=== PATIENT | male | born 1940 | race Caucasian/White ===

== ENCOUNTER 2017-02-08 07:48 | Observation (INO) | payer OTHER ==
[~2017-02-08] VITALS: Ht 167.6 cm; Wt 81.6 kg
--- NOTE | ~2017-02-08 | ST ---
Unit #: [id number] #: [id number] Patient: NAIMA GAITAN [id number] [facility]. [address] [place], [place] [address] [id number] I MR#: [id number] NAME: NAIMA GAITAN : 1940 SEX: M STUDY DATE/TIME: 02/09/2017 UNIT: [facility] ROOM: 569 STUDY DESCRIPTION: Attending Physician: Carlos Mercer M.D. Primary Care Physician: Guadalupe Aparicio A.P.R.N. CARDIOLOGY REPORT EXAM EKG portion of a Lexiscan Cardiolite stress test. REASON FOR EXAM Left-sided chest pain. FINDINGS Baseline EKG is sinus rhythm with frequent PACs and PVCs. A total of 0.4 mg of Lexiscan was injected per protocol followed by Cardiolite. The patient experienced no symptoms. He continued to have frequent PACs and PVCs with a rare couplet. The test was stopped due to protocol completion. IMPRESSION 1. This is a nondiagnostic test. 2. There were no ST segment changes. 3. The patient experienced no symptoms. 4. The patient did experience frequent PACs and unifocal PVCs with a rear couplet. 5. Please correlate with Cardiolite imaging. Dictated by... Denise Barnett APRN for Wanda Gold TD: 02/09/2017 12:10 JOB #: [id number] CARDIOLOGY REPORT Page 1 of 1 X CARDIOLOGY REPORT
--- NOTE | ~2017-02-08 | CO ---
Unit #: [id number] #: [id number] Patient: NAIMA GAITAN [id number] [address] [place], [place] [address] [id number] I MR#: [id number] NAME: NAIMA GAITAN ROOM: 569 Age: 76 Sex: M Admission Date: 02/08/2017 : 1940 Attending Physician: Carlos Mercer M.D. Primary Care Physician: Guadalupe Aparicio A.P.R.N. Consultation Date: 02/08/2017 CONSULTATION REPORT DICTATED BY Nikki Barnett APRN. REASON FOR CONSULTATION Chest pain. HISTORY OF PRESENT ILLNESS This is a 76-year-old male with a prior history of osteoarthritis and COPD. He presented to the ER with reports of constant left upper chest pain and left shoulder pain. 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 He describes it as aching 7/10 on a pain scale and worse with deep breath or movement. The pain is easily reproducible with touch. He denies nausea, diaphoresis, or dizziness with the pain. He denies neck or jaw discomfort. He states he does have left shoulder pain, but it is different than his normal arthritis pain. The pain is worse with movement. He denies a prior history of hypertension, hyperlipidemia, diabetes mellitus, or kidney problems. He denies recent illness with fever, chills, or body aches. PAST MEDICAL HISTORY 1. COPD. 2. Osteoarthritis, received bilateral knee injections yesterday. 3. MRSA abscess of left knee in 2008. PAST SURGICAL HISTORY 1. Bilateral inguinal hernia repair. 2. Colonoscopy with polypectomy. 3. Left knee arthroscopic meniscectomy. 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 He states he walks about 3 miles per day for his job. He denies alcohol or illicit drug use. He is a cigar smoker. FAMILY HISTORY His father from an OR at the age of 58 and his mother had hypertension. ALLERGIES Adhesives. HOME MEDICATIONS 1. Omeprazole 40 mg p.o. daily. Unit #: [id number] #: [id number] Patient: NAIMA AGITAN 2. Atrovent nasal spray 2 sprays to the nares twice daily. 3. Albuterol MDI one puff as needed every 6 hours for shortness of breath. REVIEW OF SYSTEMS A 10-point review of systems was conducted and was otherwise negative except for what was stated in the HPI. PHYSICAL EXAMINATION VITAL SIGNS: Temperature 98.6, pulse 62, respirations 18, blood pressure 124/82. GENERAL: This is an alert and oriented 76-year-old male, resting in bed, and in no acute distress. HEENT: Head is atraumatic and normocephalic. Pupils are equal, reactive, and round. Mucous membranes are moist and intact. No cyanosis. NECK: Supple. Trachea is midline. No JVD. CARDIOVASCULAR: S1 and S2. Regular rate and rhythm. No significant murmurs, rubs, or gallops. LUNGS: Clear. Diminished at bases. Nonlabored respirations. ABDOMEN: Soft. Nontender. Nondistended. Positive bowel sounds. EXTREMITIES: Pulses are palpable. No pedal edema. No cyanosis. NEUROLOGIC: Alert and oriented x3. Moves all extremities equally and follows without difficulty. DIAGNOSTIC STUDIES LABORATORY RESULTS: Sodium 136, potassium 4.2, chloride 103, BUN 14, creatinine 0.9, glucose 108, AST 19, ALT 22, and alk phos 78. Hemoglobin 11.6, hematocrit 36.4, white blood cell count 12.4, and platelets 289. Point of care troponin is less than 0.05. IMAGING RESULTS: Chest x-ray shows no acute findings. CARDIOVASCULAR RESULTS: EKG shows sinus rhythm with PACs and a ventricular rate of 61 and non-specific T-wave abnormalities. ASSESSMENT 1. Musculoskeletal pain. 2. Premature atrial contractions. 3. Osteoarthritis. PLAN His left anterior chest pain is reproducible with local pressure. It is considered musculoskeletal. In light of his risk factors with his family history of coronary artery disease, we will plan for an exercise Cardiolite stress test in the morning. We will give him steroids and pain medicine for his musculoskeletal pain. Check fasting lipid profile and TSH. Dictated by... GRACE Araujo/candelaria TD: 02/10/2017 05:44 JOB #: [id number] Unit #: [id number] #: [id number] Patient: NAIMA GAITAN CONSULTATION REPORT Page 1 of 1 X X CONSULTATION REPORT
--- NOTE | ~2017-02-08 | CR72 ---
[facility] A Service of [facility] RADIOLOGY TEXT RESULTS PATIENT: NAIMA GAITAN LOCATION: [facility] [id number] : 40 UNIT #: [id number] AGE: [address]: Carlos Mercer MD SEX: M ORDER DR: [id number] [facility] [address] [facility]. [place], [place] [address] [id number] I MR#: [id number] Acc #: [id number] NAME: NAIMA GAITAN : 1940 SEX: M STUDY DATE/TIME: 02/08/2017 8:36 UNIT: [facility] ROOM: [facility] STUDY DESCRIPTION: CR Chest Single View Portable Attending Physician: Carlos Mercer M.D. Ordering Physician: Ed Doctor [id number] [facility] Primary Care Physician: Guadalupe Aparicio A.P.R.N. MEDICAL IMAGING REPORT This report is preliminary unless electronic signature is present EXAM Portable chest HISTORY Shortness of breath and chest pain worsening over the past day TECHNIQUE A single AP view of the chest was obtained and compared with 07/01/16. FINDINGS Cardiomegaly and a tortuous calcified aorta are again noted. The lungs are clear with normal vascular markings and no pleural fluid is seen. No new infiltrates are noted since the previous exam. Degenerative changes are seen in both shoulders. IMPRESSION Cardiomegaly. No active disease. Normal vascular markings. Dictated by... Orlin Smith M.D. THIS IS AN ELECTRONICALLY VERIFIED REPORT Orlin Smith M.D. at 02/09/2017 10:32 AM MISSAEL/yolanda TD: 02/09/2017 06:08 JOB #: [id number] MEDICAL IMAGING REPORT [facility] A Service [facility] RADIOLOGY TEXT RESULTS PATIENT: NAIMA GAITAN LOCATION: [facility] 569 : 40 UNIT #: [id number] AGE: [address]: Carlos Mercer MD SEX: M ORDER DR: Page 1 of 1 COPY
--- NOTE | ~2017-02-08 | TH ---
Unit #: [id number] #: [id number] Patient: NAIMA GAITAN [id number] [facility]. [address] [address] [id number] I MR#: [id number] NAME: NAIMA GAITAN : 1940 SEX: M STUDY DATE/TIME: 02/10/2017 UNIT: [facility] [place] [facility] ROOM: 569 STUDY DESCRIPTION: Lexiscan stress test - Nuclear Attending Physician: Carlos Mercer M.D. Primary Care Physician: Guadalupe Aparicio A.P.R.N. CARDIOLOGY REPORT PROCEDURE PERFORMED Lexiscan Cardiolite stress test - Nuclear portion. PROCEDURE Using technetium 99m-labeled Cardiolite, rest and stress SPECT images were obtained. Multiple SPECT images were obtained in various views, including horizontal and vertical long axis and short axis views of the left ventricle. Images were obtained by gated SPECT method. The patient was administered 10.9 mCi of Cardiolite at rest. The patient was administered 31.4 mCi of Cardiolite after Lexiscan infusion was completed. On the stress images, there is normal perfusion noted. The rest images show normal perfusion. Comparing the rest and stress images, there is no stress-induced ischemia noted. The left ventricular ejection fraction is calculated to be 43%. There is global hypokinesis seen. The left ventricular cavity is mildly dilated both at rest and post stress. CONCLUSION 1. No stress-induced ischemia noted. 2. The left ventricular ejection fraction is calculated to be 43%. 3. There is mild global hypokinesis seen. 4. The left ventricular cavity is mildly dilated both at rest and post stress. 5. Suspicion for mild nonischemic dilated cardiomyopathy. 6. 1. Dictated by..Wanda Negrete TD: 02/10/2017 14:58 JOB #: [id number] CC: Franck Pascual M.D. Unit #: [id number] #: [id number] Patient: NAIMA GAITAN CARDIOLOGY REPORT Page 1 of 1 X Radha Man MD <ELECTRONICALLY SIGNED> 03/20/17 1524 CARDIOLOGY REPORT
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
--- NOTE | ~2017-02-08 | EKG ---
PATIENT: NAIMA GAITAN UNIT #: [id number] Ventricular Rate: 61 BPM Atrial Rate: 61 BPM P-R Interval: 174 ms QRS Duration: 88 ms Q-T Interval: 434 ms QTC Calculation(Bezet): 436 ms P [place]: 42 degrees Calculated R [place]: 62 degrees Calculated T [place]: 72 degrees Diagnosis Line: Diagnosis Line: Sinus rhythm Diagnosis Line: Premature atrial complexes Diagnosis Line: Otherwise normal ECG Diagnosis Line: When compared with ECG of 08-FEB-2017 07:57, Diagnosis Line: (unconfirmed) Diagnosis Line: No significant change was found Diagnosis Line: Confirmed by MARINA POWERS MD ([id number]) on 02/09/2017 Diagnosis Line: 3:14:37 PM INTERPRETING MD: GIO SHELTON
--- NOTE | ~2017-02-08 | EKG ---
PATIENT: NAIMA GAITAN UNIT #: [id number] Ventricular Rate: 61 BPM Atrial Rate: 61 BPM P-R Interval: 184 ms QRS Duration: 78 ms Q-T Interval: 422 ms QTC Calculation(Bezet): 424 ms P [place]: 52 degrees Calculated R [place]: 34 degrees Calculated T [place]: 61 degrees Diagnosis Line: Sinus rhythm with Premature atrial complexes Diagnosis Line: Otherwise normal ECG Diagnosis Line: When compared with ECG of 27-DEC-2013 10:14, Diagnosis Line: Premature atrial complexes are now Present Diagnosis Line: Criteria for Septal infarct are no longer Present Diagnosis Line: Confirmed by MARINA POWERS MD ([id number]) on 02/09/2017 Diagnosis Line: 3:03:29 PM INTERPRETING MD: GIO SHELTON
[~2017-02-08 07:48] MED LIST: ALLEGRA180 MG PO; BACTRIM DS TABL1 TAB PO; CENTRUM SILVER PO; DAKIN'S3840 ML TOP; DICLOFENAC PO; KEFLEX500 MG PO; MULTI-DAY VITAM1 TAB PO; NABUMETONE PO; PAIN MED; PERCOCET 5-3251 TAB PO; PERCOCET5/325 PO; PRILOSEC40 MG PO; PROTONIX PO; TRAMADOL HCL50 M1 PO
[2017-02-08 08:25] LABS: BASOPHIL# 0.1 X10e3 (0-0.3); BASOPHIL% 0.8 % (0-2.5); EOSINOPHIL# 0.2 X10e3 (0-0.7); EOSINOPHIL% 1.4 % (0.0-7.0); HEMATOCRIT 36.4 % (38.0-50.0); HEMOGLOBIN 11.6 gm/dL (13.0-16.0); LYMPHOCYTE# 2.8 X10e3 (1.0-3.5); LYMPHOCYTE% 22.2 % (17.0-45.0); MEAN CELL VOLUME 77.9 FL (83-96); MEAN CORPUSCULAR HEMOGLOBIN 24.9 PG (28-34); MEAN PLATELET VOLUME 8.1 FL (6.5-11.5); MONOCYTE# 1.2 X10e3 (0-1.0); MONOCYTE% 9.8 % (3.0-12.0); NEUTROPHIL# 8.2 X10e3 (1.5-7.1); NEUTROPHIL% 65.8 % (40-75); PLATELET COUNT 289 X10e3 (140-420); RED BLOOD COUNT 4.67 X10e (3.90-5.60); RED CELL DISTRIBUTION WIDTH 16.8 % (11.0-15.5); WHITE BLOOD COUNT 12.4 X10e3 (4.0-10.5)
[2017-02-08 08:28] LABS: DIFF IND NO
[2017-02-08 08:34] LABS: POC - CKMB <1.0 ng/mL (0.0-7.9); POC - TROPONIN <0.05 ng/mL (<=0.05)
[2017-02-08 08:49] LABS: ALBUMIN SERUM 3.9 g/dL (3.5-5.0); BILIRUBIN, DIRECT 0.1 mg/dL (0.0-0.2); BILIRUBIN,INDIRECT 0.4 mg/dL (0.0-0.9); BILIRUBIN,TOTAL 0.5 mg/dL (0.2-2.0); BUN/CREATININE RATIO 15.55; CALCIUM SERUM 8.8 mg/dL (8.4-10.2); CREATININE SERUM 0.9 mg/dL (0.6-1.4); GLOM FILT RATE Estimated 82.7 mL/min (>60); POTASSIUM 4.2 mmol/L (3.5-5.1)
[2017-02-08] MEDS ORDERED: OMEPRAZOLE40 M1 PO (09:07)
[2017-02-08] MEDS ORDERED: ALBUTEROL17 GM INH (09:08)
[2017-02-08] MEDS ORDERED: ATROVENT NASAL15 ML (09:08)
[2017-02-08 09:47] LABS: POC - CKMB <1.0 ng/mL (0.0-7.9); POC - TROPONIN <0.05 ng/mL (<=0.05)
[2017-02-08 10:40] LABS: PARTIAL THROMBOPLASTIN TIME 23.5 SECONDS (23.5-31.3); PROTHROMBIN TIME (PATIENT) 10.4 SECONDS (10.0-11.7)
[2017-02-08] MEDS ORDERED: CLARITIN-D 241 EACH PO (13:49)
[2017-02-08 15:19] LABS: %MB 3.9 % (0.0-4.0)
[2017-02-08 20:03] LABS: %MB 6.2 % (0.0-4.0)
[2017-02-08 20:24] LABS: FOLATE (FOLIC ACID) 8.8 ng/mL (>5.8)
[2017-02-09 07:28] LABS: THYROID STIMULATING HORMONE 3.49 uIU/ml (0.34-5.60)
[2017-02-09 07:33] LABS: CHOLESTEROL 148 mg/dL (0-200); HDL CHOLESTEROL 35 mg/dL (29-75); LDL CHOLESTEROL 93 mg/dL ([, -130]); LDL/HDL RATIO 3 RATIO (0-4); TRIGLYCERIDES 98 mg/dL (10-160)
[2017-02-09 07:34] LABS: FREE THYROXIN (T4) 0.77 ng/dL (0.58-1.64)
[2017-02-09 12:09] LABS: CALCIUM SERUM 9.1 mg/dL (8.4-10.2); CREATININE SERUM 0.7 mg/dL (0.6-1.4); GLOM FILT RATE Estimated 91.7 mL/min (>60); MAGNESIUM 2.1 mg/dL (1.6-3.0); POTASSIUM 4.7 mmol/L (3.5-5.1)
[2017-02-09] MEDS ORDERED: PRINIVIL10 MG PO (17:54)
[2017-02-09] MEDS ORDERED: METOPROLOL TAR25 MG PO (17:55)
== END 2017-02-09 18:41 | disposition home or self-care (01) ==
LOC: CED 07:48 → CEDOF 10:30 → CED 11:00 → C5C 12:33 → CEDOF 12:33 → C5C 02-09 18:41
PROVIDERS: Internal Medicine; Internal Medicine Cardiovascular Disease; Nurse Practitioner
DX: R07.89 Other chest pain (principal); I49.1 Atrial premature depolarization; J44.9 Chronic obstructive pulmonary disease, unspecified; M19.90 Unspecified osteoarthritis, unspecified site; M79.1 Myalgia; K21.9 Gastro-esophageal reflux disease without esophagitis; D72.829 Elevated white blood cell count, unspecified; D50.9 Iron deficiency anemia, unspecified; F17.290 Nicotine dependence, other tobacco product, uncomplicated; Z82.49 Family history of ischemic heart disease and other diseases of the circulatory system; Z91.048 Other nonmedicinal substance allergy status; Z79.899 Other long term (current) drug therapy; Z98.890 Other specified postprocedural states
CPT/HCPCS: 36415; 71010; 78452; 80048; 80061; 80076; 82550; 82553; 82607; 82728; 82746; 83540; 83550; 83735; 84439; 84443; 84484; 85025; 85610; 85730; 93005; 93017; 94760; 96372; 99285; A9500; G0378; J1040; J1650; J2785